=== PATIENT | male | born 1950 | race Caucasian/White ===

== ENCOUNTER 2020-01-02 17:18 | Inpatient (IN) | payer OTHER, MEDICARE ==
[~2020-01-02] VITALS: Ht 175.3 cm; Wt 64.6 kg
[~2020-01-02 17:18] MED LIST: ASPIRIN325 PO; LOPRESSOR25 PO; NITROGLYCERIN0.4 MG; PLAVIX 75 MG TA75 M1 PO
[2020-01-02 17:24] VITALS: BP 151/64
[2020-01-02] MEDS ORDERED: ASA81BEC PO (17:27)
[2020-01-02] MEDS ORDERED: ATORVASTATIN CA20 MG PO (17:27)
[2020-01-02 17:58] LABS: ABSOLUTE BASOPHILS 0.1 thou/uL (0.0-0.2); ABSOLUTE EOSINOPHILS 0.1 thou/uL (0.0-0.7); ABSOLUTE LYMPHOCYTES 2.2 thou/uL (0.8-5.3); ABSOLUTE MONOCYTES 0.5 thou/uL (0.0-1.2); ABSOLUTE NEUTROPHILS 5.9 thou/uL (1.6-8.1); BASOPHILS 1.2 %; EOSINOPHILS 1.6 %; HEMATOCRIT 42.5 % (42.0-52.0); HEMOGLOBIN 14.9 gm/dL (14.0-18.0); LYMPHOCYTES 24.9 %; MCH 33.1 pg (26.0-34.0); MCV 94.5 fL (80.0-100.0); MONOCYTES 5.4 %; MPV 6.6 fl. (7.2-11.1); NUCLEATED RBCS 0 /100WBC; PLATELET COUNT* 230 thou/uL (150-400); POLYS 66.9 %; RDW-CV 12.8 % (10.5-14.5); WBC 8.8 thou/uL (4.0-11.0)
[2020-01-02 18:07] LABS: CALCIUM 8.8 mg/dL (8.5-10.1); CREATININE 1.8 mg/dL (0.6-1.3)
[2020-01-02 18:12] LABS: ALBUMIN 3.9 g/dL (3.4-5.0); TOTAL BILIRUBIN 0.6 mg/dL (<0.1-1.0); TOTAL PROTEIN 7.8 g/dL (6.4-8.2)
[2020-01-02 19:30] VITALS: BP 139/52
[2020-01-02 20:00] VITALS: BP 131/38
[2020-01-02 20:50] LABS: URINE BILIRUBIN NEGATIVE (Negative); URINE BLOOD NEGATIVE (Negative); URINE CLARITY CLEAR; URINE COLOR YELLOW; URINE GLUCOSE-RANDOM NEGATIVE (Negative); URINE KETONES 1+ (Negative); URINE LEUKOCYTES-REFLEX NEGATIVE (Negative); URINE NITRITE-REFLEX NEGATIVE (Negative); URINE PROTEIN NEGATIVE (Negative); URINE SPECIFIC GRAVITY 1.015 (1.005-1.030); URINE UROBILINOGEN 0.2 E.U./dl (0.2-1.0)
[2020-01-03 00:30] VITALS: BP 106/52
[2020-01-03 05:30] VITALS: BP 106/42
[2020-01-03 08:00] VITALS: BP 110/49
--- NOTE | 2020-01-03 14:22 | EKG ---
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 01/03/20 1422 172 172 Primo Jorge MD, [facility] /EPI
== END 2020-01-03 09:50 | disposition left against medical advice (07) | DRG 682 ==
LOC: M.ERS 17:18 → M.TBA-ER 18:33 → M.2W 18:33
PROVIDERS: Family Medicine; ADMIT Internal Medicine; ATTEND Internal Medicine
DX: N17.9 Acute kidney failure, unspecified (principal); I63.9 Cerebral infarction, unspecified; G45.9 Transient cerebral ischemic attack, unspecified; E78.5 Hyperlipidemia, unspecified; J44.9 Chronic obstructive pulmonary disease, unspecified; F17.210 Nicotine dependence, cigarettes, uncomplicated; I25.10 Atherosclerotic heart disease of native coronary artery without angina pectoris; Z20.828 Contact with and (suspected) exposure to other viral communicable diseases; Z95.5 Presence of coronary angioplasty implant and graft; Z91.19 Patient's noncompliance with other medical treatment and regimen; Z85.46 Personal history of malignant neoplasm of prostate; Z79.82 Long term (current) use of aspirin; Z79.899 Other long term (current) drug therapy; Z88.5 Allergy status to narcotic agent